=== PATIENT | female | born 2000 | race Two or more races ===

== ENCOUNTER 2025-03-05 15:13 | Emergency (ER) | payer MEDICAID, OTHER ==
[~2025-03-05] VITALS: Ht 165.1 cm; Wt 110.4 kg
--- NOTE | 2025-03-05 15:54 | ED.PDOC ---
GI ASSESSMENT HPI Comments 24 y.o female presents to the ED for a chief complaint of nausea, vomiting and diarrhea that started [id number] today. Patient reports about 20 episodes of nonbilious, non bloody emesis, states she is unable to keep anything down and is feeling "total body numbness". Patient reports having chicken wings last night but states brother also had some and did not experience any symptoms. Patient denies any abdominal pain, fever, chills, dysuria, hematuria. Chief Complaint: Nausea/Vomiting Time Seen by MD: 15:48 Primary Care Provider: UNKNOWN Reviewed Notes: Nurses Notes, Medications, Allergies Allergies: Coded Allergies: NO KNOWN ALLERGIES (Unverified , 03/05/25) Home Meds Active Scripts Ondansetron Odt 4MG Tab (ZOFRAN PO) 4 Mg Tb, 4 MG PO Q8HP PRN for 7 Days, #21 TAB ODT TAB-DISSOLVE IN MOUTH, THEN SWALLOW Prov:YESIKA KHANNA MD 03/05/25 Information Source: Patient Mode of Arrival: Ambulatory Timing: Hours Duration: Since onset Quality: None Vomitus: Hard Stool: Loose Severity: Moderate Recent: Possible spoiled food Recent Hx of: None Pain Location: None Modifying Factors: Nothing Associated sign and symptoms: Nausea, Vomiting, Diarrhea Past Medical History PAST MEDICAL HISTORY: Denies Surgical History (Other): eye correction POLICY AND PLANNING MANAGER History: 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 History Family History Family History: Family hx of DM, Family hx of Cancer, Family hx of HTN Social History Smoker: Non-Smoker Alcohol: Occasionally Drugs: Denies Drug Use Lives In: Home Constitutional: denies: chills, diaphoresis, fatigue, fever, malaise, sweats, weakness, others EENTM: denies: blurred vision, double vision, ear bleeding, ear discharge, ear drainage, ear pain, ear ringing, eye pain, eye redness, hearing loss, mouth pain, mouth swelling, nasal discharge, nose bleeding, nose congestion, nose pain, photophobia, tearing, throat pain, throat swelling, voice changes, others Respiratory: denies: cough, hemoptysis, orthopnea, SOB at rest, shortness of b reath, SOB with excertion, stridor, wheezing, others Cardiovascular: denies: chest pain, dizzy spells, diaphoresis, Dyspnea on exertion, edema, irregular heart beat, left arm pain, lightheadedness, palpitations, PND, syncope, others Gastrointestinal: reports: diarrhea, nausea, vomiting; denies: abdomen distended, abdominal pain, blood streaked bowels, constipated, dysphagia, difficulty swallowing, hematemesis, melena, poor appetite, poor fluid intake, rectal bleeding, rectal pain, others Genitourinary: denies: abnormal vagina bleeding, burning, dyspareunia, dysuria, flank pain, frequency, hematuria, incontinence, pain, , vagina discharge, urgency, others Neurological: denies: dizziness, fainting, headache, left sided numbness, left sided weakness, numbness, paresthesia, pre-existing deficit, right sided numbness, right sided weakness, seizure, speech problems, tingling, tremors, weakness, others Musculoskeletal: denies: back pain, gout, joint pain, joint swelling, muscle pain, muscle stiffness, neck pain, others Integumetry: denies: bruises, change in color, change in hair/nails, dryness, laceration, lesions, lumps, rash, wounds, others Allergic/Immunocompromised: denies: Difficulty Healing, Frequent Infections, Hives, Itching, others Hematologic/Lymphatic: denies: anemia, blood clots, easy bleeding, easy bruising, swollen glands, others Endocrine: denies: excessive hunger, excessive sweating, excessive thirst, excessive urination, flushing, intolerance to cold, intolerance to heat, unexplained weight gain, unexplained weight loss, others Psychiatric: denies: anxiety, bipolar disorder, depression, hopeless, panic disorder, schizophrenia, sleepless, suicidal, others All Other Systems: Reviewed and Negative Physical Exam General Appearance: Mild Distress HEENT: Normal ENT Inspection, Pharynx Normal, TMs Normal Neck: Full Range of Motion, Non-Tender, Normal, Normal Inspection Respiratory: Chest Non-Tender, Lungs Clear, No Accessory Muscle Use, No Respiratory Distress, Normal Breath Sounds Cardiovascular: No Edema, No JVD, No Murmur, No Gallop, Normal Peripheral Pulses, Regular Rate/Rhythm Breast Exam: Deferred Gastrointestinal: No Organomegaly, Non Tender, No Pulsatile Mass, Normal Bowel Sounds, Soft Genitalia: Deferred Pelvic: Deferred Rectal: Deferred Extremities: No calf tenderness, Normal capillary refill, Normal inspection, Normal range of motion, Non-tender, No pedal edema Musculoskeletal : Apperance: Normal Neurologic: Alert, operation manager II-XII nml as Tested, No Motor Deficits, Normal Affect, Normal Mood, No Sensory Deficits Cerebellar Function: Normal Reflexes: Normal Skin: Dry, Normal Color, Warm Lymphatic: No Adenopathy Was a procedure done? Was a procedure done?: No GI differential Dx Differential Diagnosis: Gastroenteritis, Electrolyte Imbalance, Food Poisoning, , Bacterial, Viral X-Ray, Labs, Meds, VS Vital Signs Date Time Temp Pulse Resp B/P (MAP) Pulse Ox O2 Delivery O2 Flow Rate FiO2 03/05/25 21:24 98.4 103 16 101/59 (73) 93 98.4 03/05/25 19:02 99.3 03/05/25 16:41 125 16 98 Room Air* 0 21 03/05/25 16:41 102.1 125 16 108/71 (83) 98 102.1 03/05/25 16:39 102.1 03/05/25 15:29 101.3 129 16 108/72 (84) 100 101.3 Lab Test 03/05/25 17:26 03/05/25 16:14 03/05/25 15:40 Range/Units Lactic Acid Level 1.6 0.4-2.0 mmol/L White Blood Count 11.5 H 4.4-10.8 10^3/uL Red Blood Count 5.04 4.0-5.20 10^6/uL Hemoglobin 15.0 12.2-16.2 g/dL Hematocrit 43.5 36.0-46.0 % Mean Corpuscular Volume 86.4 80.0-100.0 fL Mean Corpuscular Hemoglobin 29.7 28.0-32.0 pg Mean Corpuscular Hemoglobin Concent 34.4 32.0-36.0 g/dL Red Cell Distribution Width 13.6 11.8-14.3 % Platelet Count 344 140-450 10^3/uL Mean Platelet Volume 7.4 6.9-10.8 fL Neutrophils (%) (Auto) 90.3 H 37.0-80.0 % Lymphocytes (%) (Auto) 5.9 L 10.0-50.0 % Monocytes (%) (Auto) 3.6 0.0-12.0 % Eosinophils (%) (Auto) 0.0 0.0-7.0 % Basophils (%) (Auto) 0.2 0.0-2.0 % Neutrophils # (Auto) 10.4 H 1.6-8.6 10 ^3/uL Lymphocytes # (Auto) 0.7 0.4-5.4 10 ^3/uL Monocytes # (Auto) 0.4 0-1.3 10 ^3/uL Eosinophils # (Auto) 0 0-0.8 10 ^3/uL Basophils # (Auto) 0 0-0.2 10 ^3/uL Nucleated Red Blood Cells 0.0 % Sodium Level 138 136-145 mmol/L Potassium Level 3.8 3.5-5.1 mmol/L Chloride Level 104 98-107 mmol/L Carbon Dioxide Level 25 20-31 mmol/L Anion Gap 9 5-15 Blood Urea Nitrogen 13 9-23 mg/dL Creatinine 0.72 0.550-1.02 mg/dL Glomerular Filtration Rate Calc 118 >90 mL/min BUN/Creatinine Ratio 18.1 10.0-20.0 Serum Glucose 131 H 74-106 mg/dL Calcium Level 9.5 8.7-10.4 mg/dL Urine Color Yellow Yellow Urine Clarity Clear Clear Urine pH 6.5 5.0-9.0 Urine Specific [place] 1.034 1.001-1.035 Urine Protein Trace H Negative Urine Ketones Negative Negative Urine Blood Negative Negative /uL Urine Nitrite Negative Negative Urine Bilirubin Negative Negative Urine Urobilinogen Normal Negative mg/dL Urine Leukocyte Esterase Negative Negative /uL Urine RBC 4 0 - 4 /hpf Urine Microscopic WBC 1 0-5 /HPF Urine Squamous Epithelial Cells Few <5 /hpf Urine Bacteria None seen None Seen /hpf Urine Mucus Few None Seen Urine Glucose Normal Normal mg/dL Urine Test Negative Negative Current Medications Medications (Trade) Dose Ordered Sig/Niurka Route Start Time Stop Time Status Last Admin Acetaminophen (Tylenol Tablet Or Capsule) 500 mg ONCE ONCE PO 03/05/25 16:00 03/05/25 16:01 DC 03/05/25 16:39 Ondansetron HCl (Zofran) 4 mg ONCE ONCE IV 03/05/25 16:00 03/05/25 16:01 DC 03/05/25 16:38 Sodium Chloride 1,000 ml @ 1,000 mls/hr Q1H ONCE IVB 03/05/25 16:00 03/05/25 16:59 DC 03/05/25 16:38 Sodium Chloride 1,700 ml @ 1,700 mls/hr ONCE ONCE IV 03/05/25 17:00 03/05/25 17:59 DC 03/05/25 18:00 Ceftriaxone Sodium 50 ml @ 100 mls/hr ONCE ONCE IV 03/05/25 17:00 03/05/25 17:29 DC 03/05/25 17:38 Vancomycin HCl 250 ml @ 250 mls/hr ONCE ONCE IV 03/05/25 17:00 03/05/25 17:59 DC 03/05/25 17:51 Ondansetron HCl (Zofran) 4 mg ONCE ONCE IV 03/05/25 20:00 03/05/25 20:01 DC 03/05/25 20:10 The patient's CBC shows an elevated white blood cell count 11.5 The rest of the CBC is within normal limits The urine test is negative The test is negative The patient was given a 1 L bolus of normal saline The patient was given saline per sepsis protocol The patient was also given acetaminophen for the fever The patient was given vancomycin and Rocephin The patient was given Zofran 4 mg IV push for the vomiting At this time the patient's heart rate has come down significantly and the patient was afebrile The patient was being discharged The CAT scan of the abdomen and pelvis shows no sign of any abnormalities The patient is being discharged on Zofran Images Reviewed?: Images reviewed and evaluated by me Time of 1ST Reevaluation: 15:51 Reevaluation 1ST: Unchanged Patient Education/Counseling: Diagnosis, Treatment, Prognosis Family Education/Counseling: No Family Present Departure 1 Departure Time of Disposition: 21:52 Impression: Primary Impression: Gastroenteritis Additional Impression: Fever Qualified Codes: R50.9 - Fever, unspecified Disposition: 01 HOME / SELF CARE / HOMELESS Condition: Fair e-Prescriptions Ondansetron Odt 4MG Tab (ZOFRAN PO) 4 Mg Tb 4 MG PO Q8HP PRN for 7 Days, #21 TAB ODT TAB-DISSOLVE IN MOUTH, THEN SWALLOW Prov: YESIKA KHANNA MD 03/05/25 Discharged With: Self Critical Care Note Critical Care Time?: No Stability Stability form required: No I personally scribed for YESIKA KHANNA MD ([email or web address]) on 03/05/25 at 15:54. Dedra ctronically submitted by Ying Waddell ([facility]). YESIKA KHANNA MD Mar 05, 2025 15:54
[2025-03-05 16:04] LABS: Urine Bacteria None Seen /hpf (None Seen)
[2025-03-05 16:22] LABS: Urine Blood Negative /uL (Negative); Urine Clarity Clear (Clear); Urine Color Yellow (Yellow); Urine Mucus FEW (None Seen); Urine Protein, UAD TRACE (Negative); Urine Specific Gravity 1.034 (1.001-1.035); Urine Squamous Epithelial Cell FEW /hpf (<5); Urine Urobilinogen Normal (Negative); Urine WBC 1 /HPF (0-5); Urine pH 6.5 (5.0-9.0)
[2025-03-05 16:22] LABS: Basophils # (auto) 0 10 ^3/uL (0-0.2); Basophils % (auto) 0.2 % (0.0-2.0); Eosinophils # (auto) 0 10 ^3/uL (0-0.8); Hematocrit 43.5 % (36.0-46.0); Lymphocytes # (auto) 0.7 10 ^3/uL (0.4-5.4); Lymphocytes % (auto) 5.9 % (10.0-50.0); Mean Corpuscular Hemoglobin 29.7 pg (28.0-32.0); Mean Corpuscular Hgb Conc. 34.4 g/dL (32.0-36.0); Mean Corpuscular Volume 86.4 fL (80.0-100.0); Monocytes # (auto) 0.4 10 ^3/uL (0-1.3); Monocytes % (auto) 3.6 % (0.0-12.0); Neutrophils # (auto) 10.4 10 ^3/uL (1.6-8.6); Neutrophils % (auto) 90.3 % (37.0-80.0); Platelet Count (auto) 344 10^3/uL (140-450); Red Blood Cells 5.04 10^6/uL (4.0-5.20); Red Cell Distribution Width 13.6 % (11.8-14.3); White Blood Cell 11.5 10^3/uL (4.4-10.8)
[2025-03-05 16:33] LABS: Chloride 104 mmol/L (98-107); Potassium 3.8 mmol/L (3.5-5.1); Sodium 138 mmol/L (136-145)
[2025-03-05 16:34] LABS: Anion Gap 9 (5-15); Calcium 9.5 mg/dL (8.7-10.4); Carbon Dioxide 25 mmol/L (20-31)
[2025-03-05] MEDS: SODIUM CHLORIDE 0.9% 1,000 ML IVB ONE (16:38)
[2025-03-05] MEDS: ONDANSETRON HCL 4 MG/2 ML VIAL IV ONE ×2 (16:38→20:10)
[2025-03-05 16:39] LABS: BUN/Creatinine Ratio 18.1 (10.0-20.0); Blood Urea Nitrogen 13 mg/dL (9-23); Glucose 131 mg/dL (74-106)
[2025-03-05] MEDS: ACETAMINOPHEN 500 MG TAB or CAP PO ONE (16:39)
[2025-03-05 16:41] VITALS: PULSE 125; RESP 16; O2SAT 98
[2025-03-05] MEDS: cefTRIAXone 1GM/50ML D5W 50 ML IV ONE (17:38)
[2025-03-05] MEDS: VANCOMYCIN 1GM/200ML PM 250 ML IV ONE (17:51)
[2025-03-05] MEDS: SODIUM CHLORIDE 0.9% 1,700 ML IV ONE (18:00)
[2025-03-05 21:24] VITALS: BP 101/59; PULSE 103; RESP 16; TEMP 98.4; O2SAT 93
[2025-03-05] MEDS ORDERED: ZOFR4T PO (21:50)
--- NOTE | 2025-03-05 22:00 | DVH ---
CLINICAL HISTORY: Abdominal pain TECHNIQUE: CT of the abdomen and pelvis was performed without intravenous contrast. This exam was per formed according to our departmental dose optimization program. Up-to-date CT equipment and radiation dose reduction techniques are utilized as appropriate. CTDI: 26.86 DLP: 1549.75 WID: COMPARISON: None FINDINGS: Lower Thorax: Unremarkable. Liver and Biliary system: Mild hepatomegaly measuring 21 cm craniocaudal. There is cholelithiasis. Th ere is no biliary ductal dilatation. Spleen: Unremarkable. Adrenal Glands and Kidneys: Unremarkable. Pancreas and Retroperitoneum: Unremarkable. Aorta and Major Vessels: Unremarkable. Bowel, Mesentery and Peritoneal space: Normal caliber small and large bowel. Normal appendix. No free air or fluid collection. Pelvis: Unremarkable. Abdominal wall and Osseous Structures: Minimal anterolisthesis at L5-S1. There is bilateral L5 spondy lolysis. No destructive osseous lesion. IMPRESSION: 1. Cholelithiasis. 2. Mild hepatomegaly.
--- NOTE | 2025-03-06 | DVH ---
CHEST RADIOGRAPH Indication: fever Technique: Single frontal view of the chest was obtained Comparison: None FINDINGS: Lines and Tubes: None Lungs: No focal consolidation. Pleura: No effusion. No pneumothorax. Cardiomediastinal contours: Unremarkable Bones: No acute osseous abnormality. IMPRESSION: 1. No acute cardiopulmonary disease.
[2025-03-06 00:28] LABS: COVID19 ANTIGEN SOFIA FIA NEGATIVE (NEGATIVE); Rapid Influenza A Negative (Negative); Rapid Influenza B Negative (Negative)
[2025-03-06] MEDS: ONDANSETRON HCL 4 MG/2 ML VIAL IV ONE (01:17)
== END 2025-03-06 01:15 | disposition home or self-care (01) ==
LOC: ER 15:13
DX: K52.9 Noninfective gastroenteritis and colitis, unspecified (principal); Z98.890 Other specified postprocedural states; Z20.822 Contact with and (suspected) exposure to COVID-19
CPT/HCPCS: 36415; 71045; 74176; 80048; 81001; 81025; 83605; 85025; 87040; 87426; 87804; 96361; 96365; 96375; 96376; 99285; J0696; J2405; J3370; J7030; J7040